=== PATIENT | male | born 1950 | race Caucasian/White ===

== ENCOUNTER 2017-01-15 08:29 | Day surgery (SDC) | payer BC, MEDICARE ==
[~2017-01-15] VITALS: Ht 165.1 cm; Wt 78.0 kg
[~2017-01-15 08:29] MED LIST: ALLO300T2 PO; ASPI-818 PO; CALC-250 PO; CALC625T12 PO; LACTATED RINGERS 1,000 ML IV SCH; MAGN250T7 PO; NFAMINITAB PO; SODIUM CHLORIDE FLUSH 3 ML SYR IV PRN; TEST75GE3 TD
--- OUTSIDE RECORDS SUMMARY | 2017-01-15 08:33 | XMS REPORT | Continuity of Care Document ---
Author Author [facility] Address Unknown Phone Unavailable Allergies Active Description Code Type Severity Reaction Onset Reported/Identified Relationship to Patient Clinical Status Yes No Known Drug Allergies [id number] Drug Allergy Unknown N/ A 12/11/2013 Medications Problems Date Dx Coded Attending Type Code Diagnosis Diagnosed By 12/12/2013 MIKE ZAMBRANO, DELANEY Hernandez Ot 401.9 HYPERTENSION NOS 12/12/2013 MIKE ZAMBRANO, DELANEY Hernandez Ot 569.69 OTH COLOST ENTEROSTOMY COMP 12/12/2013 DELANEY MCKEON MD Ot 578.1 BLOOD IN STOOL 12/12/2013 DELANEY MCKEON MD Ot V10.06 HX-RECTAL ANAL MALIGN 05/02/2014 Ryan Hannah Ot 724.4 LUMBOSACRAL NEURITIS NOS 09/11/2014 Giancarlo ZAMBRANO, Grant Howell Ot 722.52 LUMB/LUMBOSAC DISC DEGEN 02/06/2015 Grant Mondragon MD Ot 724.00 SPINAL STENOSIS NOS 07/05/2015 Giancarlo ZAMBRANO, Grant Howell Ot 564.00 07/05/2015 Grant Mondragon MD Ot 724.2 07/05/2015 Grant Mondragon MD Ot 753.10 07/05/2015 Grant Mondragon MD Ot V45.4 07/05/2015 Grant Mondragon MD Ot 724.5 07/05/2015 Grant Mondragon MD Ot 753.10 07/24/2015 Grant Mondragon MD Ot 724.4 12/26/2015 Grant Mondragon MD Ot M48.08 SPINAL STENOSIS, SACRAL AND SACROCOCCYGE 01/31/2016 Grant Mondragon MD Ot M48.08 SPINAL STENOSIS, SACRAL AND SACROCOCCYGE 01/31/2016 Grant Mondragon MD Ot M48.08 SPINAL STENOSIS, SACRAL AND SACROCOCCYGE 01/31/2016 Grant Mondragon MD Ot M48.06 SPINAL STENOSIS, LUMBAR REGION 01/31/2016 Grant Mondragon MD Ot M54.16 RADICULOPATHY, LUMBAR REGION 02/02/2016 Grant Mondragon MD Ot M48.08 SPINAL STENOSIS, SACRAL AND SACROCOCCYGE 02/04/2016 Grant Mondragon MD Ot M48.06 SPINAL STENOSIS, LUMBAR REGION 02/04/2016 Grant Mondragon MD Ot M54.16 RADICULOPATHY, LUMBAR REGION 02/11/2016 Grant Mondragon MD Ot M48.06 SPINAL STENOSIS, LUMBAR REGION 02/11/2016 Grant Mondragon MD Ot M54.16 RADICULOPATHY, LUMBAR REGION 03/31/2016 Grant Mondragon MD Ot M48.06 SPINAL STENOSIS, LUMBAR REGION 03/31/2016 Grant Mondragon MD Ot M54.16 RADICULOPATHY, LUMBAR REGION 04/15/2016 Grant Mondragon MD Ot M48.06 SPINAL STENOSIS, LUMBAR REGION 04/15/2016 Grant Mondragon MD Ot M54.16 RADICULOPATHY, LUMBAR REGION 08/21/2016 Grant Mondragon MD Ot 564.00 UNSPEC CONSTIPATION 08/21/2016 Grant Mondragon MD Ot 724.2 LUMBAGO 08/21/2016 Grant Mondragon MD Ot 753.10 CYSTIC KIDNEY DISEASE, UNSPECIFIED 08/21/2016 Grant Mondragon MD Ot V45.4 ARTHRODESIS STATUS 08/21/2016 Grant Mondragon MD Ot 724.5 BACKACHE NOS 08/21/2016 Grant Mondragon MD Ot 753.10 CYSTIC KIDNEY DISEASE, UNSPECIFIED 08/21/2016 Grant Mondragon MD Ot 724.4 LUMBOSACRAL NEURITIS NOS 08/21/2016 Grant Mondragon MD Ot M48.06 SPINAL STENOSIS, LUMBAR REGION 08/21/2016 Grant Mondragon MD Ot M54.16 RADICULOPATHY, LUMBAR REGION 08/21/2016 Grant Mondragon MD Ot M48.06 SPINAL STENOSIS, LUMBAR REGION 08/21/2016 Grant Mondragon MD Ot M54.16 RADICULOPATHY, LUMBAR REGION 09/29/2016 Grant Mondragon MD Ot M54.5 LOW BACK PAIN 10/15/2016 Grant Mondragon MD Ot M54.5 LOW BACK PAIN Procedures Code Description Performed By Performed On 45.22 12/12/2013 81.92 05/02/2014 99.23 05/02/2014 03.92 09/11/2014 99.23 09/11/2014 5O8G66G 12/26/2015 5L2I1ZY 12/26/2015 6V9J00B 01/10/2016 0I4D54H 03/11/2016 8K8W41Y INTRODUCE OF ANTI-INFLAM INTO EPIDURAL S 08/21/2016 5A9N5RF INTRODUCE OF LOCAL ANESTH INTO EPIDURAL 08/21/2016 Results Encounters ACCT No. Visit Date/Time Discharge Status Pt. Type Provider Facility Loc./Unit Complaint [id number] 12/26/2015 10:37:00 2015 11:22:00 DIS Outpatient Giancarlo ZAMBRANO, [facility] [id number] 07/08/2015 09:03:00 2014 23:59:59 CLS Outpatient Giancarlo ZAMBRANO, [facility] [id number] 02/06/2015 12:49:00 2014 14:06:00 DIS Outpatient Giancarlo ZAMBRANO, [facility] [place] [id number] 09/11/2014 10:44:00 2013 12:27:00 [facility] [id number] 05/02/2014 14:00:00 2013 15:23:00 DIS Outpatient [facility] FACET INJECTION [id number] 03/22/2014 07:35:00 2013 23:59:59 CLS Outpatient Giancarlo ZAMBRANO, [facility] RAD LEFT KIDNEY CYST 593.2,BACK PAIN 7245 [id number] 03/16/2014 09:51:00 2013 23:59:59 CLS Outpatient Giancarlo ZAMBRANO, [facility] RAD LOW BACK PAIN [id number] 12/12/2013 07:41:00 2013 10:20:00 DIS Outpatient MIKE ZAMBRANO, [facility] ASC COLONOSCOPY [id number] 08/11/2013 10:29:00 2012 23:59:59 CLS Outpatient Giancarlo ZAMBRANO, [facility] RAD CONSTIPATION [id number] 08/21/2016 07:48:00 ACT Outpatient Giancarlo ZAMBRANO, [facility] [place] [id number] 03/11/2016 14:26:00 ACT Outpatient Giancarlo ZAMBRANO, [facility] [place] [id number] 01/10/2016 14:34:00 ACT Outpatient Giancarlo ZAMBRANO, [facility]
[2017-01-15 08:42] VITALS: BP 146/86
[2017-01-15] MEDS ORDERED: ARIP10TA16 PO (08:52)
[2017-01-15] MEDS ORDERED: ESCI20TA39 PO (08:52)
[2017-01-15] MEDS ORDERED: SIMV80TA3 PO (08:52)
[2017-01-15] MEDS ORDERED: CYCL10TA45 PO (08:52)
[2017-01-15] MEDS ORDERED: PROPOFOL 20 ML IV ONE (09:10)
[2017-01-15] MEDS ORDERED: ALFENTANIL 500 MCG/ML (ALFENTA) 5 ML AMP IV ONE (09:10)
[2017-01-15] MEDS ORDERED: MIDAZOLAM 2 MG/2 ML (VERSED) VIAL ONE (09:10)
[2017-01-15 10:43] VITALS: BP 134/83
[2017-01-15 11:02] VITALS: BP 138/95
--- NOTE | 2017-01-15 12:35 | OPERATIVE REPORT ---
DATE OF OPERATION: 01/15/2017 PRE-OPERATIVE DIAGNOSIS: 1. Bleeding from stoma 2. History of rectal cancer. 3. Colostomy status. POST-OPERATIVE DIAGNOSIS: Colon polyps OPERATIVE PROCEDURE: Colonoscopy through stoma with endoscopic mucosal resection. SURGEON: Mckay Espinoza MD ANESTHESIA: Monitored anesthesia care FINDINGS: 1. The bowel prep was good. 2. There was a small, flat polyp noted in the transverse colon removed with endoscopic mucosal resection. There is also a polyp on the colostomy that was removed using the cautery snare. Path is pending. 3. No diverticula, inflammation or angiodysplasia were seen. INDICATION: The patient is a 66-year-old referred by Dr. Mondragon due to persistent bleeding from his colostomy. He had an APR for rectal cancer several years ago and is here today to evaluate for a source of the blood loss. DESCRIPTION OF PROCEDURE: The patient was informed of the risks and benefits and agreed to proceed. He was administered IV sedation in a supine position. The colostomy appliance was removed and the lighted endoscope was then passed into the colostomy and along the colon to the cecum. The ileocecal valve and the appendiceal orifice were easily seen. The scope was slowly brought back through the ascending, transverse, descending, and what was left of the sigmoid colon. In the transverse colon the first small polyp was noted, photographed and removed with the saline lift and cautery snare. No other polyps were seen until we were done with the procedure, when a polyp was noted on the colostomy itself. I didn't see any granuloma or any other lesion there that represented a source of blood loss. This lesion on the stoma was removed with the cautery snare and sent to pathology. The patient tolerated the procedure without complications. A new stoma appliance was placed at the end of the procedure. He will return to the clinic next week to go over the path report.
== END 2017-01-15 11:13 | disposition home or self-care (01) ==
LOC: ASC 08:29
PROVIDERS: ATTEND Surgery
DX: D12.3 Benign neoplasm of transverse colon (principal); K94.09 Other complications of colostomy; Z85.048 Personal history of other malignant neoplasm of rectum, rectosigmoid junction, and anus; F32.9 Major depressive disorder, single episode, unspecified; F41.9 Anxiety disorder, unspecified; I10 Essential (primary) hypertension; Z79.899 Other long term (current) drug therapy; Y83.8 Other surgical procedures as the cause of abnormal reaction of the patient, or of later complication, without mention of misadventure at the time of the procedure
CPT/HCPCS: 36415; 44394; 85018; 88305; J2250; J7120

== ENCOUNTER → 2017-01-25 | Outpatient (CLI) | payer BC, MEDICARE ==
[~2017-01-25] MED LIST changes: +ARIP10TA16 PO; +CYCL10TA45 PO; +ESCI20TA39 PO; -LACTATED RINGERS 1,000 ML IV SCH; +SIMV80TA3 PO; -SODIUM CHLORIDE FLUSH 3 ML SYR IV PRN
[2017-01-25 09:42] LABS: MEAN CORPUSCULAR VOLUME 82 FL (80-100); MEAN PLATELET VOLUME 9.9 FL (6.0-9.5); PLATELET COUNT 190 10^3uL (150-450); WHITE BLOOD COUNT 3.32 10^3uL (4.0-11.0)
[2017-01-25 09:56] LABS: MEAN CORPUSCULAR HEMOGLOBIN 26.3 PG (26.0-34.0)
[2017-01-25 10:10] LABS: ANISOCYTOSIS SLIGHT; BAND NEUTROPHILS % 0 % (0-6); EOSINOPHILS % 1 % (0-4); LYMPHOCYTES # 1.4 #; MONOCYTES # 0.3 #; MONOCYTES % 11 % (3-11); RBC MORPH SEE REFERENCE (NORMAL); SEGMENTED NEUTROPHILS % 45 % (51-67); TOTAL CELLS COUNTED 100
[2017-01-25 17:55] LABS: IRON 59 ug/dL (65-175); UNBOUND IRON CONTENT 246 ug/dl (126-382)
== END ==
LOC: LAB 09:29
PROVIDERS: ATTEND Internal Medicine Hematology & Oncology
DX: D50.9 Iron deficiency anemia, unspecified (principal)
CPT/HCPCS: 36415; 82728; 83540; 83550; 85007; 85027